=== PATIENT | female | born 1955 | race Caucasian/White ===

== ENCOUNTER → 2016-09-11 | Outpatient (CLI) | payer OTHER | END | disposition disaster alternative care site (69) | LOC: GKIC 11:29 | DX: C96.4 Sarcoma of dendritic cells (accessory cells) (principal); C49.9 Malignant neoplasm of connective and soft tissue, unspecified; R19.02 Left upper quadrant abdominal swelling, mass and lump; R93.8 Abnormal findings on diagnostic imaging of other specified body structures | CPT/HCPCS: A9552 ==

== ENCOUNTER → 2016-11-13 | Outpatient (CLI) | payer OTHER | END | disposition disaster alternative care site (69) | LOC: GRAD 15:30 | DX: R22.2 Localized swelling, mass and lump, trunk (principal); C76.1 Malignant neoplasm of thorax; J94.2 Hemothorax; R91.8 Other nonspecific abnormal finding of lung field; Z85.831 Personal history of malignant neoplasm of soft tissue; Z98.82 Breast implant status; Z45.2 Encounter for adjustment and management of vascular access device; Z85.118 Personal history of other malignant neoplasm of bronchus and lung; Z85.89 Personal history of malignant neoplasm of other organs and systems ==

== ENCOUNTER → 2016-11-28 | Outpatient (CLI) | payer OTHER | END | disposition disaster alternative care site (69) | LOC: GKIC 11-27 12:00 | DX: C49.9 Malignant neoplasm of connective and soft tissue, unspecified (principal) | CPT/HCPCS: A9552 ==